=== PATIENT | male | born 1965 | race Two or more races ===

== ENCOUNTER 2019-12-17 08:13 | Emergency (ER) | payer OTHER ==
[~2019-12-17] VITALS: Ht 170.2 cm; Wt 95.5 kg
[2019-12-17 08:37] VITALS: BP 148/100
--- NOTE | 2019-12-17 09:35 | NUR ---
PT SWABED FOR COVID-19. NOTIFIED THAT TEST WILL TAKE 5-7 DAYS FOR RESULTS AND THE PT WILL BE CALLED WITH RESULTS. INFORMED THAT PT IS TO BE IN QUARENTINE UNTIL HE HAS THE RESULTS OF THE TEST
== END 2019-12-17 09:45 | disposition home or self-care (01) ==
LOC: ER 08:13
DX: U07.1 COVID-19 (principal); B34.9 Viral infection, unspecified; R19.7 Diarrhea, unspecified; J02.9 Acute pharyngitis, unspecified; M79.10 Myalgia, unspecified site; E78.00 Pure hypercholesterolemia, unspecified
CPT/HCPCS: 36415; 99283; U0003